=== PATIENT | male | born 1940 | race Caucasian/White ===

== ENCOUNTER 2020-02-24 19:27 | Inpatient (IN) | payer MEDICARE, OTHER ==
[~2020-02-24] VITALS: Ht 198.1 cm; Wt 84.1 kg
[~2020-02-24 19:27] MED LIST: ASCO-139 PO
[2020-02-24] MEDS ORDERED: clopidogrel 75mg tablet PO ONE (20:10)
[2020-02-24] MEDS ORDERED: magnesium hydroxide 30ml (MOM) UD suspension PO PRN (20:45)
[2020-02-24] MEDS ORDERED: HYDROcodone/acetaminophen 5mg/325mg tablet PO PRN (20:45)
[2020-02-24] MEDS ORDERED: potassium CL 10mEq/100ml bag 100 ML IV PRN ×2 (20:45)
[2020-02-24] MEDS ORDERED: potassium Cl 20 mEq SR tablet PO PRN ×2 (20:45)
[2020-02-24] MEDS ORDERED: acetaminophen 325mg tablet PO PRN (20:45)
[2020-02-24] MEDS ORDERED: ondansetron/PF 4mg/2ml inj IV PRN (20:45)
[2020-02-24] MEDS ORDERED: mag hydrox/Alum hydrox/simeth 30ml oral suspension PO PRN (20:45)
[2020-02-24] MEDS ORDERED: bisacodyl 10mg suppository rectal RC PRN (20:45)
[2020-02-24] MEDS ORDERED: magnesium 4gm in 100ml NS 100 ML IV PRN (20:45)
[2020-02-24] MEDS ORDERED: magnesium Cl slow-release 64mg tablet PO PRN (20:45)
[2020-02-24] MEDS ORDERED: magnesium 2GM in 50ml NS 50 ML IV PRN (20:45)
[2020-02-24 21:55] VITALS: BP 191/76
[2020-02-25] VITALS (7 sets, daily range): BP systolic 136–182; BP diastolic 65–74
--- NOTE | 2020-02-25 06:35 | NUR ---
Patient in room [facility]TH[facility] 4023. I have received report from December and had the opportunity to ask questions and assume patient care.
[2020-02-25 06:53] LABS: ALANINE AMINOTRANSFERASE 14 U/L (12-78); ALBUMIN 3.5 G/DL (3.4-5.0); ALBUMIN/GLOBULIN RATIO 1.2 (1.1-1.5); ALKALINE PHOSPHATASE 50 IU/L (46-116); ANION GAP 7 (8-16); ASPARTATE AMINO TRANSFERASE 15 U/L (10-37); BILIRUBIN,TOTAL 0.7 MG/DL (0.1-1.0); BLOOD UREA NITROGEN 15 MG/DL (7-18); BUN/CREATININE RATIO 16.5 (5.4-32.0); CALCIUM 8.7 MG/DL (8.5-10.1); CHLORIDE 109 MMOL/L (99-107); CHOL/HDL RATIO 4.5 (0.00-4.99); CHOLESTEROL 143 MG/DL (0-200); CREATININE 0.91 MG/DL (0.60-1.10); GLUCOSE 94 MG/DL (70-104); HDL CHOLESTEROL 32 MG/DL (35-60); LDL CHOLESTEROL 103 MG/DL (50-100); MAGNESIUM 2.1 MG/DL (1.5-2.4); POTASSIUM 4.1 MMOL/L (3.5-5.1); SODIUM 143 MMOL/L (135-145); TOTAL CARBON DIOXIDE 26.7 MMOL/L (24-32); TOTAL PROTEIN 6.5 G/DL (6.4-8.2); TRIGLYCERIDES 59 MG/DL (20-135); eGFR 80 ML/MIN
[2020-02-25 07:00] LABS: BASOPHILS % (AUTO) 0.5 % (0-1); EOSINOPHILS # (AUTO) 0.3 X10'3 (0-0.9); HEMATOCRIT 45.5 % (42.0-52.0); HEMOGLOBIN 14.7 g/dl (14.0-17.9); LYMPHOCYTES # (AUTO) 2.4 X10'3 (1.1-4.8); LYMPHOCYTES % (AUTO) 34.5 % (21-51); MEAN CORPUSCULAR HEMOGLOBIN 28.2 PG (27.0-31.0); MEAN CORPUSCULAR HGB CONC 32.4 g/dL (33.0-36.5); MEAN CORPUSCULAR VOLUME 87.2 FL (78-98); MEAN PLATELET VOLUME 9.8 FL (7.4-10.4); MONOCYTES # (AUTO) 0.8 X10'3 (0-0.9); MONOCYTES % (AUTO) 12.2 % (2-12); NEUTROPHILS # (AUTO) 3.3 X10'3 (1.8-7.7); NEUTROPHILS % (AUTO) 47.8 % (42-75); PLATELET COUNT 172 X10'3 (140-440); RED BLOOD COUNT 5.22 X10'6 (4.70-6.10); RED CELL DISTRIBUTION WIDTH 14.4 % (11.5-14.5); WHITE BLOOD COUNT 6.9 X10'3 (4.5-11.0)
[2020-02-25] MEDS ORDERED: LORazepam 1 MG tablet PO ONE (07:35)
[2020-02-25 07:37] LABS: HEMOGLOBIN A1C 5.7 % (4.5-6.2)
[2020-02-25] MEDS: docusate sod 100mg capsule PO SCH ×2 (08:00→20:00)
[2020-02-25] MEDS: K and/or MAG REPLACEMENT MC SCH ×2 (08:00→20:00)
[2020-02-25] MEDS: aspirin 325mg tablet PO SCH (09:16)
[2020-02-25] MEDS: clopidogrel 75mg tablet PO SCH (09:16)
--- NOTE | 2020-02-25 15:22 | NUR ---
PAGER ID: [phone] MESSAGE: Stephanie Smith on neuro, Mr. Tapia in [id number], is inquiring about a discharge plan, please advise, thank you
--- NOTE | 2020-02-25 18:15 | NUR ---
Patient in room [facility]TH[facility] 4023. I have received report from Stephanie Hodge had the opportunity to ask questions and assume patient care.
--- NOTE | 2020-02-25 18:30 | NUR ---
Problems reprioritized. Patient report given, questions answered & plan of care reviewed with
[2020-02-26 02:00] VITALS: BP 146/75
[2020-02-26 06:00] VITALS: BP 146/73
--- NOTE | 2020-02-26 06:26 | NUR ---
Problems reprioritized. Patient report given, questions answered & plan of care reviewed with Stephanie JENSEN .
--- NOTE | 2020-02-26 06:30 | NUR ---
Patient in room [facility]THO 4023. I have received report from Tonia and had the opportunity to ask questions and assume patient care.
[2020-02-26 06:44] LABS: BASOPHILS % (AUTO) 0.4 % (0-1); EOSINOPHILS # (AUTO) 0.3 X10'3 (0-0.9); HEMATOCRIT 47.4 % (42.0-52.0); HEMOGLOBIN 15.3 g/dl (14.0-17.9); LYMPHOCYTES # (AUTO) 2.5 X10'3 (1.1-4.8); LYMPHOCYTES % (AUTO) 30.9 % (21-51); MEAN CORPUSCULAR HEMOGLOBIN 28.1 PG (27.0-31.0); MEAN CORPUSCULAR HGB CONC 32.4 g/dL (33.0-36.5); MEAN CORPUSCULAR VOLUME 86.7 FL (78-98); MEAN PLATELET VOLUME 9.5 FL (7.4-10.4); MONOCYTES # (AUTO) 0.8 X10'3 (0-0.9); MONOCYTES % (AUTO) 10.3 % (2-12); NEUTROPHILS # (AUTO) 4.5 X10'3 (1.8-7.7); NEUTROPHILS % (AUTO) 54.4 % (42-75); PLATELET COUNT 178 X10'3 (140-440); RED BLOOD COUNT 5.46 X10'6 (4.70-6.10); RED CELL DISTRIBUTION WIDTH 14.4 % (11.5-14.5); WHITE BLOOD COUNT 8.2 X10'3 (4.5-11.0)
[2020-02-26 07:08] LABS: ALANINE AMINOTRANSFERASE 15 U/L (12-78); ALBUMIN 3.7 G/DL (3.4-5.0); ALBUMIN/GLOBULIN RATIO 1.2 (1.1-1.5); ALKALINE PHOSPHATASE 52 IU/L (46-116); ANION GAP 10 (8-16); ASPARTATE AMINO TRANSFERASE 20 U/L (10-37); BILIRUBIN,TOTAL 0.6 MG/DL (0.1-1.0); BLOOD UREA NITROGEN 16 MG/DL (7-18); CALCIUM 8.8 MG/DL (8.5-10.1); CHLORIDE 108 MMOL/L (99-107); CREATININE 0.89 MG/DL (0.60-1.10); GLUCOSE 93 MG/DL (70-104); MAGNESIUM 2.1 MG/DL (1.5-2.4); PHOSPHORUS 3.1 MG/DL (2.3-4.5); POTASSIUM 4.2 MMOL/L (3.5-5.1); SODIUM 142 MMOL/L (135-145); TOTAL CARBON DIOXIDE 24.3 MMOL/L (24-32); TOTAL PROTEIN 6.7 G/DL (6.4-8.2); eGFR 82 ML/MIN
[2020-02-26] MEDS: docusate sod 100mg capsule PO SCH (08:00)
[2020-02-26] MEDS: K and/or MAG REPLACEMENT MC SCH (08:00)
[2020-02-26] MEDS: aspirin 325mg tablet PO SCH (08:41)
[2020-02-26] MEDS: clopidogrel 75mg tablet PO SCH (08:42)
[2020-02-26 10:00] VITALS: BP 129/60
[2020-02-26] MEDS ORDERED: ASPI-1 PO (10:15)
[2020-02-26] MEDS ORDERED: CLOP75TA35 PO (10:15)
[2020-02-26] MEDS ORDERED: ATOR40TA PO (10:15)
--- NOTE | 2020-02-26 11:51 | NUR ---
Reviewed discharge instructions with pt. Pt verbalized understanding. Pt is alert, oriented and wanting to go home. Pt does not have c/o pain. Dressing was changed at discharge. Pt was wheeled downstairs to be driven home by his spouse. All of pt's belongings were returned to pt.
--- NOTE | 2020-03-02 13:39 | NUR ---
Case Management DC follow up: spoke to pt via telephone. S/P: TIA, L side weak, tingly lips, numbness, resolves Reports: "have had a couple of episodes since DC and within the last hour". Denies: acute cp, SOB, resp distress, blurry vision, N/V, DOWD, emergent general pain, abd tenderness/distension, fever. Verbalizes understanding of s/s that warrant 9-11/ER visit for evaluation. 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 Saw Dr Jorgensen 02/28/20. Verbalizes understanding of new Rx: asa, Lipitor, Plavix, and why prescribed. no ase r/t polypharmacy. Pt states went to [facility] for same emergent reasons, lost left side completely, resolved. Was given Rx for Lisinopril 5mg, take hald tab once daily r/t erratic BP at [facility]. has had a few of the same episodes since returning home from [facility] a few hours ago. orthostatic hypotenstion compliant. Acknowledges need to schedule/keep follow up appts w/ PCP: Jameel. Needs met, questions answered at [place], no further questions at this time.
== END 2020-02-26 11:51 | disposition home or self-care (01) | DRG 69 ==
LOC: ER 19:27 → ORTHO 4S 20:42 → CMPBEDREQ 02-25 00:10 → OBSVTOIN 02-26 09:30
PROVIDERS: ADMIT Family Medicine; ATTEND Internal Medicine
DX: G45.9 Transient cerebral ischemic attack, unspecified (principal); F17.210 Nicotine dependence, cigarettes, uncomplicated; G89.29 Other chronic pain; W18.39XA Other fall on same level, initial encounter; S61.512A Laceration without foreign body of left wrist, initial encounter; M54.9 Dorsalgia, unspecified; J44.9 Chronic obstructive pulmonary disease, unspecified; Z86.73 Personal history of transient ischemic attack (TIA), and cerebral infarction without residual deficits; Z90.49 Acquired absence of other specified parts of digestive tract; Y93.89 Activity, other specified; Y92.89 Other specified places as the place of occurrence of the external cause; Y99.8 Other external cause status; Z79.899 Other long term (current) drug therapy
CPT/HCPCS: 36415; 70450; 70496; 70498; 70544; 70551; 71045; 80053; 80061; 82948; 83036; 83735; 84100; 84484; 85025; 85610; 85730; 87081; 92508; 92616; 93005; 93306; 93880; 97161; 97530; 99285; G0378; Q9967